=== PATIENT | female | born 1970 | race Caucasian/White ===

== ENCOUNTER → 2017-10-23 09:36 | Outpatient (CLI) | payer OTHER, SELFPAY ==
[2017-10-23 11:25] LABS: AST(SGOT) 17 U/L (15-37); Alanine Aminotransfer ALT/SGPT 20 U/L (13-56); Albumin, Serum 3.6 g/dL (3.2-5.0); Alkaline Phosphatase 76 U/L (45-117); Bilirubin, Direct 0.15 mg/dL (0.00-0.30); Cholesterol 181 mg/dL (200); Globulin 4.4 g/dL (2.2-4.2); High Density Lipoprotein 45 mg/dL; Triglycerides 130 mg/dL; Very Low Density Lipoprotein 26 mg/dL (5-40)
== END ==
LOC: LAB 09:39
PROVIDERS: Family Provider Family Medicine; PCP Family Medicine; Visit Provider Family Medicine
DX: E78.00 Pure hypercholesterolemia, unspecified (principal); E03.9 Hypothyroidism, unspecified
CPT/HCPCS: 36415; 80061; 80076; 84443

== ENCOUNTER → 2018-05-12 12:42 | Outpatient (CLI) | payer BC, SELFPAY ==
--- NOTE | 2018-05-12 12:52 | RAD_ITS ---
STUDY: X-RAY CHEST REASON FOR EXAM: Female, 47 years old. Cough x2 weeks TECHNIQUE: PA and lateral views of the chest. COMPARISON: 06/26/2014 FINDINGS: The lungs are clear and expanded. There is no demonstrated pleural abnormality. Normal size heart. There are calcified mediastinal lymph nodes. Normal visualized pulmonary arteries. Normal visualized aortic arch and descending thoracic aorta. Normal visualized thoracic spine. Normal visualized ribs, clavicles, and shoulders. There is no demonstrated abnormality of the visualized soft tissue structures of the upper abdomen. RAD/Chest PA and Lateral IMPRESSION: There is no acute cardiopulmonary disease or active cavitating tuberculosis. There is no significant interval change. Electronically Signed: Xenia Caldwell MD at 7:21 EST , Service support ,
== END ==
LOC: RAD 12:47
PROVIDERS: Family Provider Family Medicine; PCP Family Medicine; Referring Provider Family Medicine; Visit Provider Family Medicine
DX: R05 Cough (principal)
CPT/HCPCS: 71046

== ENCOUNTER → 2018-06-25 10:22 | Outpatient (CLI) | payer BC, SELFPAY ==
[2018-06-25 11:15] LABS: Absolute Neutrophil Count 6.5 X10^3/uL (2.0-7.7); Basophil# 0.03 X10^3/uL; Basophil% 0.3 % (0-1); Eosinophil# 0.13 X10^3/uL; Eosinophils% 1.3 % (0-5); Hematocrit 38.4 % (37-47); Hemoglobin 11.9 g/dl (12.0-15.0); Lymphocyte % 26.8 % (19-41); Mean Corpuscular Hgb 28.5 pg (27.0-32.0); Mean Corpuscular Volume 91.9 fL (81-99); Mean Platelet Vol. 11.6 fl (6.2-12.0); Monocyte# 0.71 X10^3/uL; Monocyte% 7.1 % (0-10); Neutrophil # 6.47 X10^3/uL (2.7-7.7); Neutrophil % 64.2 % (47-70); POSITIVE COUNT NO; POSITIVE DIFFERENTIAL NO; POSITIVE MORPHOLOGY NO; Platelet Count 249 K/mm3 (150-450); RBC Distribution Width CV 15.1 % (11.6-14.6); RBC Distribution Width SD 50.8 fl (35.1-43.9); Red Blood Count 4.18 M/mm3 (4.2-5.4); White Blood Count 10.1 K/mm3 (4.4-11.0)
[2018-06-25 11:16] LABS: Color, Urine Yellow (Yellow); Glucose, Dipstick Normal (Normal); Ketone-Dipstick Negative (Negative); Leukocyte Esterase-Dipstick 25 /ul (Negative); Nitrite-Dipstick Negative (Negative); Occult Blood-Urine Negative /ul (Negative); Protein-Dipstick Negative (Negative); Urine Bilirubin Dipstick Negative (Negative); Urine Clarity Sl. Cloudy (Clear); Urine Urobilinogen Normal (Normal)
[2018-06-25 11:58] LABS: AST(SGOT) 13 U/L (15-37); Alanine Aminotransfer ALT/SGPT 18 U/L (13-56); Albumin, Serum 3.8 g/dL (3.2-5.0); Alkaline Phosphatase 71 U/L (45-117); Anion Gap 9 (5-15); BUN 18 mg/dL (7-18); BUN/Creat Ratio 19.9 RATIO (10-20); Calcium,Total 8.4 mg/dL (8.5-10.1); Chloride 105 mmol/L (98-107); Cholesterol 180 mg/dL (200); Creatinine, Serum 0.91 mg/dL (0.55-1.02); EST Glomerular Filtration Rate 70 mL/min (>60); Est Glom Filt Rate - Afr Amer 85 mL/min (>60); Glucose 79 mg/dL (74-106); High Density Lipoprotein 48 mg/dL; Potassium 3.7 mmol/L (3.5-5.1); Protein, Total 7.8 g/dL (6.4-8.2); Sodium Level 137 mmol/L (136-145); Triglycerides 162 mg/dL; Very Low Density Lipoprotein 32 mg/dL (5-40)
--- OUTSIDE RECORDS SUMMARY | 2018-08-29 19:02 | XMS RPT_ITS ---
:1970 Author Organization [place] Care Team Providers Name Role Phone Kash Gentile Attending Unavailable Kash Gentile Referring Unavailable Kash Gentile Primary Care Unavailable Kash Gentile Attending Unavailable Kash Gentile Referring Unavailable Kash Gentile Primary Care Unavailable Kash Gentile Attending Unavailable Kash Gentile Referring Unavailable Kash Gentile Primary Care Unavailable PROBLEMS PROBLEMS DATE TYPE CONDITION / CODE ATTENDING STATUS SOURCE 06/25/2018 Unknown Z12.31 - Encounter Kash Gentile Active [facility] for screening [facility] mammogram for Hospital malignant neoplasm Repository of breast / Z12.31(ICD-10) 06/25/2018 Unknown Z00.00 - Encounter Kash Gentile Active [facility] for general adult [facility] examination Repository without abnormal findings / Z00.00(ICD-10) 06/25/2018 Unknown E78.00 - Pure Kash Gentile Active [place] hypercholesterolem Community ia, unspecified / Hospital E78.00(ICD-10) Repository 06/25/2018 Unknown I10 - Essential Kash Gentile Active [facility]primary[facility] hypertension [facility] Hospital I10(ICD-10) Repository 05/12/2018 Unknown R05 - Cough / Kash Gentile Active [facility] R05(ICD-10) [facility] Repository 10/23/2017 Unknown E03.9 - Kash Gentile Active [facility] Hypothyroidism, Community unspecified / Hospital E03.9(ICD-10) Repository PROCEDURES PROCEDURES No Procedure Records FoundRESULTS RESULTS CBC W/DIFF, AUTOMATED Collected: 06/25/2018 Status: F Source: FRANNIE 10:31 AM [facility] REPOSITORY TYPE CODE TESTS RESULT OUT OF RANGE REFERENCE UNITS LAB L100.1000 4.4-11.0 K/mm3 Normal WBC 10.1 LAB L100.1200 4.2-5.4 M/mm3 Low RBC 4.18 LAB L100.1300 12.0-15.0 g/dl Low HGB 11.9 LAB L100.1400 37-47 % Normal HCT 38.4 LAB L100.1500 81-99 fL Normal MCV 91.9 LAB L100.1600 27.0-32.0 pg Normal MCH 28.5 LAB L100.1700 32-36 g/gl Low MCHC 31.0 LAB L100.1810 11.6-14.6 % High RDW CV 15.1 LAB L100.1820 35.1-43.9 fl High RDW SD 50.8 LAB L100.1900 150-450 K/mm3 Normal PLT 249 LAB L100.2000 6.2-12.0 fl Normal MPV 11.6 LAB L100.2100 47-70 % Normal NEUT% 64.2 LAB L100.2200 19-41 % Normal LY% 26.8 LAB L100.2300 0-10 % Normal MONO% 7.1 LAB L100.2400 0-5 % Normal EO% 1.3 LAB L100.2500 0-1 % Normal BASO% 0.3 LAB L100.2550 0.0-0.9 % Normal IM GRAN % 0.300 Result Comment: IG% - Immature Granulocytes (promyelocytes, myelocytes and metamyelocytes) > 1% indicates that a LEFT SHIFT is Present. LAB L100.2620 2.0-7.7 X10 3/uL Normal Absolute Neut 6.5 LAB L100.2720 0.83-4.51 X10 3/ul Normal Absolute Lymph 2.70 Performed By: #### L100.0100 #### [facility] [address] [place], [address] URINALYSIS, ROUTINE Collected: 06/25/2018 Status: F Source: FRANNIE (DIPSTICK) 10:31 AM [facility] REPOSITORY Order Comment: How was Urine Obtained? Urine, Random TYPE CODE TESTS RESULT OUT OF RANGE REFERENCE UNITS LAB L400.3000 Yellow COLOR Normal Yellow LAB L400.3050 Clear Normal CLARITY Sl. Cloudy LAB L400.3200 Normal mg/dl Normal GLUCOSE, UR Normal LAB L400.3300 Negative mg/dL Normal BILIRUBIN URINE Negative LAB L400.3400 Negative mg/dl Normal KETONE UR Negative LAB L400.3465 1.002-1.030 Normal SP.GR. DIPSTX 1.020 LAB L400.3550 5.0 - 8.0 pH UR Normal 5.0 LAB L400.3600 Negative mg/dl PROT Normal DIPSTX Negative LAB L400.3700 Normal mg/dl Normal UROBILI Normal LAB L400.3750 Negative Normal NITRITE UR Negative LAB L400.3780 Negative /ul Normal OCCULT BLOOD-UR Negative LAB L400.3800 Negative /ul High LEUK 25 ESTERASE Performed By: #### L400.2011 #### [facility] [address] [place], [address] COMPREHENSIVE METABOLIC Collected: 06/25/2018 Status: F Source: FRANNIE PROFIL 10:31 AM [facility] REPOSITORY TYPE CODE TESTS RESULT OUT OF RANGE REFERENCE UNITS LAB L501.0100 74-106 mg/dL Normal GLU 79 Result Comment: Please note revised GLUCOSE reference range effective 2017. LAB L501.1000 7-18 mg/dL Normal BUN 18 LAB L501.1100 0.55-1.02 mg/dL Normal CREAT,SERUM 0.91 Result Comment: The validity of the calculated GFR AND GFRAA in patients over 70 years has not been determined. Clinical correlation is essential. LAB L501.1110 >60 mL/min Normal EST GFR 70 Result Comment: Non- GFR Calc LAB L501.1115 >60 mL/min Normal EST GFR - AA 85 Result Comment: GFR Calc LAB L501.1300 10-20 RATIO Normal BUN/CRE 19.9 LAB L501.1500 6.4-8.2 g/dL T Normal PROT 7.8 LAB L501.1800 3.2-5.0 g/dL Normal ALB 3.8 LAB L501.1950 2.2-4.2 g/dL Normal GLOB 4.0 LAB L501.2000 0.9-2.4 RATIO Normal A/G 1.0 LAB L501.2200 8.5-10.1 mg/dL Low CA 8.4 LAB L501.4100 15-37 U/L Low AST 13 LAB L501.4305 45-117 U/L Normal ALK P 71 LAB L501.4405 13-56 U/L Normal ALT 18 LAB L501.4600 0.20-1.00 mg/dL T Normal BILI 0.90 LAB L501.5300 136-145 mmol/L NA Normal 137 LAB L501.5600 3.5-5.1 mmol/L K Normal 3.7 LAB L501.5900 98-107 mmol/L CL Normal 105 LAB L501.6100 21.0-32.0 mmol/L Normal CO2 23.0 LAB L501.6200 5-15 Normal GAP 9 Performed By: #### L500.4050, L500.4100, L501.9520 #### [facility] [address] [place], [address] LIPID PROFILE Collected: 06/25/2018 Status: F Source: VIOLA 10:31 AM [facility] REPOSITORY TYPE CODE TESTS RESULT OUT OF RANGE REFERENCE UNITS LAB L501.4900 200 mg/dL Normal CHOL 180 Result Comment: <200 mg/dL Desirable 200-240 mg/dL Borderline >240 mg/dL High Risk LAB L501.5000 mg/dL Normal TRIG 162 Result Comment: The drugs N-Acetylcysteine and Metamizole may falsely depress this assay. Serum Triglycerides Reference Interval Normal <150 mg/dL Borderline high 150 - 199 mg/dL High 200 - 499 mg/dL Very High > or = 500 mg/dL LAB L501.6400 mg/dL Normal HDL 48 Result Comment: The drugs N-Acetylcysteine and Metamizole may falsely depress this assay. Reference Range HDL <40 mg/dL Low HDL Cholesterol HDL >or= 60 mg/dL High HDL Cholesterol LAB L501.6500 0-130 mg/dL Normal LDL 100 LAB L501.6600 5-40 mg/dL Normal VLDL 32 Performed By: #### L500.4050, L500.4100, L501.9520 #### [facility] [address] [place], [address] THYROID STIM HORMONE Collected: 06/25/2018 Status: F Source: VIOLA (TSH) 10:31 AM [facility] REPOSITORY TYPE CODE TESTS RESULT OUT OF RANGE REFERENCE UNITS LAB L501.9520 0.358-3.74 uIU/mL High TSH 63.50 Performed By: #### L500.4050, L500.4100, L501.9520 #### [facility] [address] [place], [address] CHEST PA AND LATERAL Observed: 05/12/2018 Status: F Source: VIOLA 12:52 PM [facility] REPOSITORY [facility] Imaging Services [address] [place] [address] Chest PA and Lateral MR#: [id number] Acct: [id number] Name: ASHLEY CALDERÓN Rep #: [id number] : 1970 F 47 From: Xenia Caldwell MD PCP: Kash Gentile MD Status: REG CLI Study: Chest PA and Lateral Date of Exam: 05/12/18 Exam# [id number] Ordering Dr: Kash Gentile MD STUDY: X-RAY CHEST REASON FOR EXAM: Female, 47 years old. Cough x2 weeks TECHNIQUE: PA and lateral views of the chest. COMPARISON: 06/26/2014 FINDINGS: The lungs are clear and expanded. There is no demonstrated pleural abnormality. Normal size heart. There are calcified mediastinal lymph nodes. Normal visualized pulmonary arteries. Normal visualized aortic arch and descending thoracic aorta. Normal visualized thoracic spine. Normal visualized ribs, clavicles, and shoulders. There is no demonstrated abnormality of the visualized soft tissue structures of the upper abdomen. RAD/Chest PA and Lateral IMPRESSION: There is no acute cardiopulmonary disease or active cavitating tuberculosis. There is no significant interval change. Electronically Signed: Xenia Caldwell MD at 7:21 EST , Service support , CC: Kash Gentile MD Logger Driving Horses: Signed LIVER PROFILE Collected: 10/23/2017 Status: F Source: VIOLA 9:46 AM [facility] REPOSITORY TYPE CODE TESTS RESULT OUT OF RANGE REFERENCE UNITS LAB L501.1500 6.4-8.2 g/dL Normal T PROT 8.0 LAB L501.1800 3.2-5.0 g/dL Normal ALB 3.6 LAB L501.1950 2.2-4.2 g/dL High GLOB 4.4 LAB L501.4100 15-37 U/L Normal AST 17 LAB L501.4305 45-117 U/L Normal ALK P 76 LAB L501.4405 13-56 U/L Normal ALT 20 LAB L501.4600 0.20-1.00 mg/dL Normal T BILI 0.90 LAB L501.4700 0.00-0.30 mg/dL Normal D BILI 0.15 Performed By: #### L500.3400, L500.4100, L501.9520 #### [facility] [place], [address] LIPID PROFILE Collected: 10/23/2017 Status: F Source: VIOLA 9:46 AM [facility] REPOSITORY TYPE CODE TESTS RESULT OUT OF RANGE REFERENCE UNITS LAB L501.4900 200 mg/dL Normal CHOL 181 Result Comment: <200 mg/dL Desirable 200-240 mg/dL Borderline >240 mg/dL High Risk LAB L501.5000 mg/dL Normal TRIG 130 Result Comment: The drugs N-Acetylcysteine and Metamizole may falsely depress this assay. Serum Triglycerides Reference Interval Normal <150 mg/dL Borderline high 150 - 199 mg/dL High 200 - 499 mg/dL Very High > or = 500 mg/dL LAB L501.6400 mg/dL Normal HDL 45 Result Comment: The drugs N-Acetylcysteine and Metamizole may falsely depress this assay. Reference Range HDL <40 mg/dL Low HDL Cholesterol HDL >or= 60 mg/dL High HDL Cholesterol LAB L501.6500 0-130 mg/dL Normal LDL 110 LAB L501.6600 5-40 mg/dL Normal VLDL 26 Performed By: #### L500.3400, L500.4100, L501.9520 #### [facility] [address] [place], [place], [address] THYROID STIM HORMONE Collected: 10/23/2017 Status: F Source: VIOLA (TSH) 9:46 AM [facility] REPOSITORY TYPE CODE TESTS RESULT OUT OF RANGE REFERENCE UNITS LAB L501.9520 0.358-3.74 uIU/mL High TSH 11.70 Performed By: #### L500.3400, L500.4100, L501.9520 #### [facility] [address] [place], [address] PROGRESS Observed: 09/03/2017 Status: COMPLETED Source: STAPLES 1:[address] [facility] [place] REPOSITORY HNO ID: [id number] Author: Helen Fuentes Bus Girl Service: (none) Author Type: (none) Type: Progress Notes Filed: 09/09/2017 10:08 AM Note Text: PCP clarification letter mailed to patient to re establish care. PROGRESS Observed: 09/03/2017 Status: COMPLETED Source: [place]AP[place] 1:[address] [facility] [place] REPOSITORY HNO ID: [id number] Author: Helen Fuentes Bus Girl Service: (none) Author Type: (none) Type: Progress Notes Filed: 09/09/2017 10:08 AM Note Text: Tried reaching patient and not a working number. Patient hasn't been seen by PCP since 2011. Letter sent for PCP verification. PROGRESS Observed: 09/03/2017 Status: COMPLETED Source: [place] 1:[address] [facility] [place] REPOSITORY HNO ID: [id number] Author: Helen Fuentes Bus Girl Service: (none) Author Type: (none) Type: Progress Notes Filed: 09/09/2017 10:08 AM Note Text: [facility] CARE GAP REGISTRY DOCUMENTATION (OUTSIDE TEAMLET) Provider Action/FYI: Please file labs and advise if wanting anything additional. Patient hasn't been seen by pcp in years. 2011 PSR Action/FYI: Patient identified by name and date of . Last BP/Labs: Blood Pressure: Last 3 Encounter BP Readings: Date: BP: 06/20/2015 144/100[BP JOO[ 04/13/2015 132/98 11/06/2014 138/86 Lipids: Cholesterol, Total (mg/dL) Date Value 10/18/2014 272 04/28/2013 204 HDL Cholesterol (mg/dL) Date Value 10/18/2014 58 04/28/2013 55 LDL Cholesterol (mg/dL) Date Value 10/18/2014 180 04/28/2013 127 Triglyceride (mg/dL) Date Value 10/18/2014 169 04/28/2013 110 HGB A1C: Lab Results Component Value Date HBA1C 5.8 10/18/2014 TSH: TSH (uU/mL) Date Value 04/13/2015 210.100 10/18/2014 368.100 ) ? Patient has the following care gap registry disease diagnosis:tsh ? Patient has the following open care gaps:Thyroid ? Patient hasn't been seen by PCP in several years - BP elevated at last visit. ? Last office visit: 06/20/2015 ? Future office visit:Physical next available with labs prior with labs prior Health Maintenance Due: MAMMOGRAM due on 10/24/2015 - order pending INFLUENZA(1) due on 02/06/2017 Helen Fuentes Cma CNPTOUTREACH Observed: 09/03/2017 Status: COMPLETED Source: ADRIANNA 12:00 AM [facility] REPOSITORY Patient Outreach (INTMWS) NIRMALAASHLEY ([id number]) 1970 F Date Time Provider Department 09/03/17 HELEN FUENTES) MARISOL During your visit today, we recorded the following information about you: Helen Fuentes Cma 09/09/2017 10:08 AM Signed [facility] CARE GAP REGISTRY DOCUMENTATION (OUTSIDE TEAMLET) Provider Action/FYI: Please file labs and advise if wanting anything additional. Patient hasn't been seen by pcp in years. 2011 PSR Action/FYI: Patient identified by name and date of . Last BP/Labs: Blood Pressure: Last 3 Encounter BP Readings: Date: BP: 06/20/2015 144/100[BP JOO[ 04/13/2015 132/98 11/06/2014 138/86 Lipids: Cholesterol, Total (mg/dL) Date Value 10/18/2014 272 04/28/2013 204 HDL Cholesterol (mg/dL) Date Value 10/18/2014 58 04/28/2013 55 LDL Cholesterol (mg/dL) Date Value 10/18/2014 180 04/28/2013 127 Triglyceride (mg/dL) Date Value 10/18/2014 169 04/28/2013 110 HGB A1C: Lab Results Component Value Date HBA1C 5.8 10/18/2014 TSH: TSH (uU/mL) Date Value 04/13/2015 210.100 10/18/2014 368.100 ) ? Patient has the following care gap registry disease diagnosis:tsh ? Patient has the following open care gaps:Thyroid ? Patient hasn't been seen by PCP in several years - BP elevated at last visit. ? Last office visit: 06/20/2015 ? Future office visit:Physical next available with labs prior with labs prior Health Maintenance Due: MAMMOGRAM due on 10/24/2015 - order pending INFLUENZA(1) due on 02/06/2017 Helen Fuentes Cma 09/09/2017 10:08 AM Signed Tried reaching patient and not a working number. Patient hasn't been seen by PCP since 2011. Letter sent for PCP verification. Helen Fuentes Cma 09/09/2017 10:08 AM Signed PCP clarification letter mailed to patient to re establish care. Allergies As of Date: 09/03/2017 Noted Allergy Reaction LATEX 02/16/2008 7 - Swelling Date Reviewed: 06/20/2015 Reviewed by: Montse Deluna [facility] - Fully Assessed Reason for Visit: PHMA/Care Gap Outreach [3605] Primary Visit Diagnosis:Hyperlipidemia, unspecified hyperlipidemia type [E78.5] Other Visit Diagnoses:Acquired hypothyroidism [E03.9] Screening mammogram, encounter for [Z12.31] Prescriptions as of 09/03/2017 Sig: SYNTHROID 125 MCG TABLET Take 1 tablet by mouth once d* HYDROCHLOROTHIAZIDE 12.5 MG C* Take 1 capsule by mouth once * MAGNESIUM OXIDE 400 MG CAPSULE Take by mouth once daily. ZINC 50 MG TABLET Take by mouth once daily. CHOLECALCIFEROL (VITAMIN D3) * Take 5,000 Units by mouth onc* BIOTIN 10,000 MCG CAPSULE Take by mouth once daily. FERROUS SULFATE ER 325 MG (65* Take by mouth once daily. VITAMIN B COMPLEX TABLET Take 1 tablet by mouth once d* * MULTIVITAMIN TABLET Take one(1) tablet daily. Problem List As Of Date 09/03/2017 Noted Resolved Hypothyroidism [E03.9] INVALID FOR* More... FAMILY HISTORY OF DIABETES MELLITUS [Z83.3] INVALID FOR* More... Other malaise and fatigue [R53.81, R53.83] INVALID FOR*04/28/2013 Mixed hyperlipidemia [E78.2] More... BMI 37.0-37.9, adult [Z68.37] INVALID FOR*10/17/2014 More... Letter Text Makenna Mart MD Department of Internal Medicine [address] [place], [place] [id number] Ashley Calderón [phone] [address] [place] [id number] 09/03/2017 Dear : Our records indicate that Makenna Mart MD is listed as your Primary Care Physician. It has been a period of time since you were seen in our office and we hope this finds you well. If we continue to be your primary care doctor, please consider making an appointment to re-establish care, update your health records, and discuss your health issues. If we no longer provide care for you, please let us know so that we can update our records. The main telephone number is [phone]. Best Regards, The office staff of Makenna Mart MD Encounter Status:Closed by HELEN FUENTES CMA on 09/09/17 ALLERGIES ALLERGIES DATE TYPE / CODE NAME / CODE REACTION SEVERITY SOURCE 06/26/2014 Drug latex/[id number] Hives Unknown [facility] Allergy/4160 8921(RXNORM) Hospital [address]694(SNOMED Repository CT) ENCOUNTERS ENCOUNTERS ADMIT/DISCHARGE ACCOUNT ADMITTING ENCOUNTER LOCATION SOURCE NUMBER CLASS 06/25/2018 [id number] Ambulatory [place] [facility] ing:LAB Repository 05/12/2018 [id number] Ambulatory [place] [facility] 8 [facility] ing:RAD Repository 10/23/2017 [id number] Ambulatory [facility] ing:LAB Repository PAYERS PAYERS ENCOUNTER GUARANTOR PAYER SUBSCRIBER SOURCE 06/25/2018 ASHLEY G [id number] Primary ASHLEY G [facility] [address] Insurance:ANTHEMPolic SPAIDDOB: [address] y Number: [id number] [address]Tib: 330 [id number] Repository [phone] () Date:7312-28-28[address] [place] [id number]: 06/25/2018 Secondary NOT GIVENUNK [place] Insurance:SELF PAY [facility] Number: Effective Repository Date:2018-06-25 05/12/2018 ASHLEY G [id number] Primary ASHLEY G [place] [address] Insurance:ANTHEMPolic SPAIDDOB: [address] y Number: [id number] [address]Kgl: 330 [id number] Repository [phone] () Date:0415-56-40[address], [place] [address]WP: 05/12/2018 Secondary NOT GIVENUNK [place] Insurance:SELF PAY [facility] Number: Effective Repository Date:2018-05-12 10/23/2017 Ashley Singletary Tilfs489 Primary Ashley Kathleen Mcadoo Insurance:[facility] [address]DOB[address] [address]O[address]wl[address] [id number] [address]Yup: (330) Number: Repository [phone] HP [id number] Date:4753-44-26[address], [place] [address]MA: 10/23/2017 [email or web address]LF [facility]: Effective Repository Date:2017-10-23
== END ==
PROVIDERS: Family Provider Family Medicine; PCP Family Medicine; Referring Provider Family Medicine; Visit Provider Family Medicine
DX: Z00.00 Encounter for general adult medical examination without abnormal findings (principal); E78.00 Pure hypercholesterolemia, unspecified; I10 Essential (primary) hypertension; E03.9 Hypothyroidism, unspecified
CPT/HCPCS: 36415; 80053; 80061; 81002; 84443; 85025

== ENCOUNTER → 2018-08-03 07:10 | Outpatient (CLI) | payer BC, SELFPAY ==
--- NOTE | 2018-08-03 07:14 | BI_ITS ---
MAMMOGRAPHY - BILATERAL SCREENING REASON FOR EXAM: Female, 48 years old. Routine annual screening examination. PERTINENT HISTORY: Aunt with breast cancer. TECHNIQUE: Digital bilateral breast snehal (3D mammographic acquisition) in the CC and MLO projections. 2-D mediolateral oblique (MLO) and craniocaudad (CC) views of both breasts were obtained. CAD: Full Field Digital Mammography with Computer Added Detection was performed. COMPARISON: Comparison is made with prior examination dated October 23, 2014. FINDINGS: Breast Composition: The breasts are heterogeneously dense, which may obscure small masses. There are no dominant masses or suspicious calcifications. Stable benign-appearing bilateral axillary lymph nodes. No other significant abnormalities are identified. There has been no significant change since the prior study. BI/SCREENING MAMM (CAD), BILAT IMPRESSION: Stable bilateral screening mammogram. Yearly follow-up mammogram recommended. (A) ASSESSMENT CATEGORY: BIRADS Category 2: Benign. A letter regarding these results will be sent to the patient by the facility within 30 days. Approximately 10% of breast cancers are not detected by mammography. A normal mammogram should not delay biopsy of a clinically suspicious abnormality. [id number] Electronically Signed: Jayme Valadez, at 9:11 EST , Service support ,
== END ==
PROVIDERS: Family Provider Family Medicine; PCP Family Medicine; Referring Provider Family Medicine; Visit Provider Family Medicine
DX: Z12.31 Encounter for screening mammogram for malignant neoplasm of breast (principal)
CPT/HCPCS: 77063; 77067

== ENCOUNTER → 2018-08-12 15:24 | Outpatient (CLI) | payer BC, SELFPAY ==
[2018-08-17 09:59] LABS: HPV APTIMA, High Risk Negative (Negative)
== END ==
PROVIDERS: Visit Provider Obstetrics & Gynecology
DX: Z12.4 Encounter for screening for malignant neoplasm of cervix (principal)
CPT/HCPCS: 87624; 88175; G0145

== ENCOUNTER → 2018-10-05 | Outpatient (CLI) | payer BC, SELFPAY | END | disposition home or self-care (01) | LOC: LAB 12:43 | PROVIDERS: Family Provider Family Medicine; PCP Family Medicine; Referring Provider Family Medicine; Visit Provider Family Medicine | DX: E03.9 Hypothyroidism, unspecified (principal) | CPT/HCPCS: 36415; 84443 ==

== ENCOUNTER → 2018-12-16 | Outpatient (CLI) | payer BC, SELFPAY ==
[2018-12-16 13:23] LABS: Thyroid Stim Hormone (TSH) 0.59 uIU/mL (0.358-3.74)
== END | disposition home or self-care (01) ==
LOC: LAB 11:55
PROVIDERS: Family Provider Family Medicine; PCP Family Medicine; Referring Provider Family Medicine; Visit Provider Family Medicine
DX: E03.9 Hypothyroidism, unspecified (principal)
CPT/HCPCS: 36415; 84443

== ENCOUNTER → 2019-01-07 | Outpatient (CLI) | payer BC, SELFPAY ==
[2019-01-07 11:25] LABS: AST(SGOT) 24 U/L (15-37); Alanine Aminotransfer ALT/SGPT 29 U/L (13-56); Albumin, Serum 3.7 g/dL (3.2-5.0); Alkaline Phosphatase 89 U/L (45-117); Bilirubin, Direct 0.25 mg/dL (0.00-0.30); Cholesterol 128 mg/dL (200); Globulin 4.2 g/dL (2.2-4.2); High Density Lipoprotein 48 mg/dL; Protein, Total 7.9 g/dL (6.4-8.2); Triglycerides 109 mg/dL; Very Low Density Lipoprotein 22 mg/dL (5-40)
== END | disposition home or self-care (01) ==
LOC: LAB 09:55
PROVIDERS: Family Provider Family Medicine; PCP Family Medicine; Referring Provider Family Medicine; Visit Provider Family Medicine
DX: E78.00 Pure hypercholesterolemia, unspecified (principal); Z51.81 Encounter for therapeutic drug level monitoring
CPT/HCPCS: 36415; 80061; 80076

== ENCOUNTER 2019-05-06 18:37 | Emergency (ER) | payer BC, SELFPAY ==
[2019-05-06 18:38] VITALS: BP 142/95; PULSE 89; RESP 16; TEMP 36.6; O2SAT 97; BMI 42.0
[2019-05-06 18:43] VITALS: BP 142/95; PULSE 89; RESP 16; TEMP 36.6; O2SAT 97
--- NOTE | 2019-05-06 18:51 | RAD_ITS ---
STUDY: X-RAY CHEST REASON FOR EXAM: Female, 48 years old. Shortness of breath. TECHNIQUE: Cough. COMPARISON: 05/12/2018. FINDINGS: The lungs are clear. There are no pleural effusions. There is no pneumothorax. The heart is normal in size. The visualized osseous structures are within normal limits. RAD/Chest PA and Lateral IMPRESSION: No acute thoracic pathology. Electronically Signed: Nando Escobar, at 19:31 EST Tel , Service support ,
--- NOTE | 2019-05-06 18:52 | ED.DCSUM_ITS ---
- ER Visit Summary Date of Service: 05/06/19 Chief Complaint: Dyspnea History of Present Illness: The patient is a 48 F who states that to 3 weeks ago she was treated with an inhaler and another medication she cannot remember for bronchitis. She is doing well until yesterday when she started noticing short ness of breath. The suddenly got worse just prior to arrival and she came to the emergency department. She denies any known lung condition notes a history of hypertension high cholesterol and hypothyroidism. She does not know her medications. She denies being a smoker. No fevers. Slight rhinorrhea cough is nonproductive Physical Examination: Afebrile vital signs are stable respirations 16 pulse ox 97% on room air Gen: Well-nourished well-developed Head: Normocephalic atraumatic Eyes: Perrl EOMI ENT: TMs clear no rhinorrhea moist mucous membranes Neck: Supple no lymphadenopathy no JVD nontender CVS: Regular rate rhythm no murmurs normal S1-S2 Respiratory: No distress there is audible forced expiratory wheeze from the neck. With pursed lip breathing there is a faint expiratory wheeze bilaterally chest nontender Abdomen: Soft nontender nondistended normal bowel sounds no masses Back: Nontender Extremity: Nontender no edema Skin: Normal color no rash Neuro: alert orientated ?3 CN II-XII intact normal strength sensation reflexes gait cerebellar Psych: Normal affect normal mood Test Results: Chest x-ray shows no acute process Emergency Department Course and Treatment: Patient received breathing treatments and prednisone. Pulse ox is 100%. She is speaking in full sentences. She will be started on albuterol MDI and prednisone at home. She is to follow-up with her doctor return if worsening or concerns Impression: 1. Acute bronchitis with bronchospasm This note was generated with [employer] dictation software. It may contain incorrect words, spelling, and punctuation that were not noted in review of the chart prior to signing ED Disposition - Plan for ED Patient: Disposition: Home or Assisted Living Instructions: BRONCHITIS with Wheezing (Adult) Prescriptions: predniSONE tablet 60 mg PO DAILY #15 tab Prescription Printed Albuterol Inhaler [Ventolin Hfa] 2 puff INHALATION Q2H PRN PRN #1 inhaler PRN Reason: Wheezing Prescription Printed Referrals: Kash Gentile MD [Primary Care Provider] - 3-5 Days if not improving
[2019-05-06 19:04] VITALS: BP 135/80; PULSE 102; RESP 20; TEMP 37.2; O2SAT 97
[2019-05-06] MEDS: Ipratropium/Albuterol Sulfate 3 ML AMPUL.NEB INHALATION ×2 (19:05)
[2019-05-06 19:06] VITALS: PULSE 95; RESP 18
[2019-05-06] MEDS: Albuterol 2.5 MG/3 ML VIAL.NEB. INHALATION (19:54)
[2019-05-06 19:55] VITALS: PULSE 79; RESP 16
[2019-05-06] MEDS: predniSONE 20 MG Tablet 60 MG PO (20:13)
[2019-05-06 20:15] VITALS: BP 132/79; PULSE 98; RESP 20; O2SAT 98
--- NOTE | 2019-05-06 20:15 | ED.RN ---
THIS NURSE REVIEWED D/C INSTRUCTIONS WITH PT. PT VERBALIZED UNDERSTANDING OF INSTRUCTIONS. PT DENIES FURTHER NEEDS OR QUESTIONS AT THIS TIME.
== END 2019-05-06 20:16 | disposition home or self-care (01) ==
PROVIDERS: Emergency Provider Emergency Medicine; Family Provider Family Medicine; PCP Family Medicine
DX: J20.9 Acute bronchitis, unspecified (principal); I10 Essential (primary) hypertension; E78.00 Pure hypercholesterolemia, unspecified; E03.9 Hypothyroidism, unspecified; Z79.899 Other long term (current) drug therapy
CPT/HCPCS: 71046; 94640; 99283

== ENCOUNTER → 2020-03-01 08:56 | Outpatient (CLI) | payer OTHER, SELFPAY ==
[2019-07-25 13:12] VITALS: BMI 42.0
[2020-03-01 10:19] LABS: AST(SGOT) 21 U/L (15-37); Alanine Aminotransfer ALT/SGPT 29 U/L (13-56); Albumin, Serum 3.8 g/dL (3.2-5.0); Alkaline Phosphatase 77 U/L (45-117); Bilirubin, Direct 0.23 mg/dL (0.00-0.30); Cholesterol 143 mg/dL (200); Globulin 4.1 g/dL (2.2-4.2); High Density Lipoprotein 47 mg/dL; Protein, Total 7.9 g/dL (6.4-8.2); Triglycerides 202 mg/dL; Very Low Density Lipoprotein 40 mg/dL (5-40)
== END ==
LOC: LAB 09:02
PROVIDERS: PCP Family Medicine; Referring Provider Family Medicine; Visit Provider Family Medicine
DX: I10 Essential (primary) hypertension (principal); E03.9 Hypothyroidism, unspecified; E78.00 Pure hypercholesterolemia, unspecified
CPT/HCPCS: 36415; 80061; 80076; 84443

== ENCOUNTER → 2020-07-20 08:12 | Outpatient (CLI) | payer OTHER, SELFPAY ==
[2019-07-25 13:12] VITALS: BMI 42.0
[2020-07-20 09:35] LABS: Absolute Lymphocyte Count 2.66 X10^3/uL (0.83-4.51); Absolute Neutrophil Count 5.7 X10^3/uL (2.0-7.7); Basophil# 0.06 X10^3/uL; Basophil% 0.6 % (0-1); Eosinophil# 0.14 X10^3/uL; Eosinophils% 1.5 % (0-5); Hemoglobin 12.6 g/dL (12.0-15.0); Lymphocyte # 2.66 X10^3/ul (4.0); Lymphocyte % 28.1 % (19-41); Mean Corpuscular Hgb 27.1 pg (27.0-32.0); Mean Corpuscular Volume 90.3 fL (81-99); Mean Platelet Vol. 11.9 fl (6.2-12.0); Monocyte# 0.83 X10^3/uL; Monocyte% 8.8 % (0-10); NRBC Flagged by Analyzer 0 % (0-5); Neutrophil # 5.74 X10^3/uL (2.7-7.7); Neutrophil % 60.5 % (47-70); Platelet Count 281 K/mm3 (150-450); RBC Distribution Width CV 16.5 % (11.6-14.6); RBC Distribution Width SD 54.8 fl (35.1-43.9); Red Blood Count 4.65 M/mm3 (4.2-5.4); White Blood Count 9.5 K/mm3 (4.4-11.0)
[2020-07-20 10:04] LABS: AST(SGOT) 13 U/L (15-37); Alanine Aminotransfer ALT/SGPT 25 U/L (13-56); Albumin, Serum 4.3 g/dL (3.2-5.0); Alkaline Phosphatase 78 U/L (45-117); Anion Gap 5 (5-15); BUN 24 mg/dL (7-18); BUN/Creat Ratio 23.1 RATIO (10-20); Calcium,Total 9.3 mg/dL (8.5-10.1); Chloride 104 mmol/L (98-107); Cholesterol 179 mg/dL (200); Creatinine, Serum 1.04 mg/dL (0.55-1.02); EST Glomerular Filtration Rate 59 mL/min (>60); Est Glom Filt Rate - Afr Amer 72 mL/min (>60); Globulin 4.4 g/dL (2.2-4.2); Glucose 97 mg/dL (74-106); High Density Lipoprotein 61 mg/dL; Potassium 4.2 mmol/L (3.5-5.1); Protein, Total 8.7 g/dL (6.4-8.2); Sodium Level 136 mmol/L (136-145); Triglycerides 151 mg/dL; Very Low Density Lipoprotein 30 mg/dL (5-40)
== END ==
PROVIDERS: PCP Family Medicine; Referring Provider Family Medicine; Visit Provider Family Medicine
DX: Z00.00 Encounter for general adult medical examination without abnormal findings (principal); I10 Essential (primary) hypertension; E78.00 Pure hypercholesterolemia, unspecified; E03.9 Hypothyroidism, unspecified
CPT/HCPCS: 36415; 80053; 80061; 84443; 85025

== ENCOUNTER 2021-10-09 08:28 | Observation (INO) | payer OTHER, SELFPAY ==
[2021-10-09] VITALS (15 sets, daily range): BP systolic 94–149; BP diastolic 61–115; PULSE 54–78; RESP 14–26; TEMP 36.4–36.7; O2SAT 91–99; BMI 41.9; BMI 42.3
--- NOTE | 2021-10-09 | BLA_PTH ---
PATIENT: SATISH SILVESTRE LOC: U U#:[id number] AGE/SX: 51/F ROOM: [facility] RE10/09/[address]: Dr. Abhinav Schaefer MD : 1970 BED: 1 DIS: 10/10/2021 SPEC #: [id number] RECD: 10/09/21 16:04 STATUS: ANNALEE SCHMITZ #: [id number] DEXTER: 10/09/21 00:[address]: Abhinav Schaefer DEPT: SURGICAL PATHOLOGY RECD BY: Partha Presley ENTERED: 10/10/21 08:01 SP TYPE: BLADDER BX OTHR DR: Dr. 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 AM:greg 10/11/2021 COMMENT Case has been reviewed in consultation with Dr. Lin who concurs with the above diagnosis. IDC:[email or web address] MICROSCOPIC DESCRIPTION Slides are reviewed. GROSS DESCRIPTION Received in fixative is one container labeled with the patient's name and designated right bladder polyp. The specimen consists of a fragment of alvarado soft tissue measuring 0.2 x 0.2 x 0.1 cm. The specimen is totally submitted in one cassette. / TAD:greg 10/10/2021 TC:? CPT: 91721
--- NOTE | 2021-10-09 08:41 | CT_ITS ---
STUDY: CT ABDOMEN AND PELVIS WITHOUT CONTRAST REASON FOR EXAM: Female, 51 years old. Abd pain RADIATION DOSAGE (If Supplied By Facility): CTDIvol = ( 23.37 ) mGy, DLP = ( 1179.49 ) mGycm TECHNIQUE: Transaxial images were obtained from the dome of the diaphragm to the symphysis pubis without oral contrast, and without intravenous contrast. Sagittal and coronal images were reconstructed. Individualized dose optimization techniques were used for this CT. COMPARISON: None. FINDINGS: The visualized lung bases are unremarkable. Coronary artery calcification. There is decreased attenuation of the liver consistent with steatosis. Normal gallbladder and extrahepatic biliary system. Normal spleen. Normal pancreas. Normal bilateral adrenal glands. Mild degree of right hydronephrosis and right hydroureter due to a 6.2 mm calculus at the right ureterovesical junction. Mild degree of right perinephric stranding. Normal left kidney. Normal visualized stomach. Normal small intestine. Normal colon. The appendix is visualized and appears normal. There is scattered atherosclerotic calcification of the abdominal aorta and major visceral branches, without a demonstrated aneurysm. Normal inferior vena cava. Normal retroperitoneum. Normal urinary bladder. Normal abdominal wall. Normal osseous structures. CT/Abdomen/Pelvis without Cont IMPRESSION: 6.2 mm calculus at the right ureterovesical junction causing mild degree of right hydronephrosis and hydroureter with perinephric and periureteric stranding. Diffuse fatty infiltration of the liver. Electronically Signed: Jayme Valadez MD at 10:13 EDT ,
--- NOTE | 2021-10-09 08:42 | EDS_ITS ---
HPI HPI - GI History of Present Illness Chief Complaint: Abd Pain Narrative Narrative: Brought in by EMS worsening right lower abdominal pain since 2 AM. Dysuria since yesterday. Nausea and vomiting x2 since pain. No history of kidney stones. Denies any abdominal surgery history. History of hypertension hypercholesterolemia and hypothyroidism. Denies any allergies. No medications given by EMS. Denies any pelvic issues or ovarian cyst history. Prior similar symptoms: No PFSH PFSH Medical History (Updated 10/09/21 @ 12:03 by Kristen Rodgers) High cholesterol Hypertension Hypothyroidism Home Medications albuterol sulfate 2 puff INHALATION Q2H PRN PRN #1 inhaler 05/06/19 [Rx Last Taken Unknown] amlodipine 10 mg PO DAILY 05/06/19 [History Last Taken 10/08/21] atorvastatin 20 mg PO DAILY 05/06/19 [History Last Taken 10/08/21] hydrochlorothiazide 25 mg PO DAILY 05/06/19 [History Last Taken 10/08/21] levothyroxine 100 mcg PO DAILY 05/06/19 [History Last Taken 10/08/21] levothyroxine 200 mcg PO DAILY 05/06/19 [History Last Taken 10/08/21] lisinopril 10 mg PO DAILY 05/06/19 [History Last Taken 10/08/21] ciprofloxacin HCl [Cipro] 500 mg PO BID #14 tab 10/09/21 [Rx Last Taken Unknown] oxycodone-acetaminophen 1 tab PO Q6H PRN 7 Days #14 tab 10/09/21 [Rx Last Taken Unknown] Allergy/AdvReac Type Severity Reaction Status Date / Time latex Allergy Hives Verified 10/09/21 08:33 Family History (Updated 10/09/21 @ 12:03 by Kristen Rodgers) Sister Diabetes Mother Diabetes Myocardial infarction Social History (Updated 10/09/21 @ 12:03 by Kristen Rodgers) household members: family housing: house Smoking Status: Never smoker substance use type: does not use ROS ROS ED Constitutional Constitutional ED: Denies chills, fever(s) or sweats Eyes Eyes: Denies change in vision ENT ENT ED: Denies dysphagia or sore throat Cardiovascular Cardiovascular: Denies chest pain, leg edema, palpitations or racing heartbeat Respiratory/Chest Respiratory/Chest: Denies cough, dyspnea or dyspnea on exertion Gastrointestinal Gastrointestinal: Reports abdominal pain, nausea and vomiting; Denies diarrhea Genitourinary Genitourinary ED: Reports dysuria; Denies hematuria or urinary frequency Musculoskeletal Musculoskeletal: Denies back pain, extremity pain or neck pain Integumentary Denies rash or wounds Neurologic Neurologic: Denies headache(s), paresthesias or weakness EXAM Physical Exam Const Vital Signs: 10/09/21 08:29 10/09/21 08:32 10/09/21 10:37 Temperature 98 F 98 F 98 F Temperature Source Temporal Temporal Temporal Pulse Rate 78 78 64 Respiratory Rate 26 H 26 H 18 Blood Pressure 149/115 H 149/115 H 142/85 H Blood Pressure Mean 126 126 104 Pulse Ox 99 99 95 Oxygen Delivery Method Room Air Room Air Room Air Positive well nourished and well developed Constitutional Narrative: Uncomfortable shaking unable to lie still. Nontoxic. General Appearance ED: well developed HEENT Reports moist mucous membranes normocephalic and atraumatic Eyes PERRL, EOMs intact bilaterally and conjunctivae normal General Eye ED: Yes normal appearance of both eyes Neck no lymphadenopathy and supple General: Negative for tenderness Chest Wall Chest: Negative for tenderness Resp normal respiratory effort and normal air movement Effort and Inspection: symmetric chest movement; Negative for respiratory distress Cardio regular rate, regular rhythm and no murmurs Peripheral Pulses: pulses 2+ throughout GI normal to inspection, nondistended, normoactive bowel sounds GI Narrative: Tender palpation right lower quadrant mild right upper quadrant. No guarding or rebound. Palpation: Negative for guarding or rebound tenderness present Back/Spine no CVA tenderness and no thoracic nor lumbar tenderness Extremity normal to inspection General Extremety ED: Negative for edema or tenderness General Extremity: Negative for edema Neuro oriented x3 and no sensory deficits noted Sensorium / Orientation: awake and alert Skin no rashes or lesions noted and no wounds MDM MDM MDM Narrative Medical decision making narrative: Renal stone protocol due to her discomfort. Labs White count 16.2 creatinine 1.55 lipase and liver enzymes are normal urine notes hematuria with no infection. She was given morphine x2 Zofran x2 with improving nausea however pain was still obtained on reevaluation. CT scan results did note a 6.2 mm right UVJ stone with hydroureter and nephrosis with stranding. Additional Dilaudid was given for symptom control. I spoke with on- call urologist Dr. Schaefer, will keep n.p.o. fluids are running will admit to his service for planned intervention. Lab Data Attestation: I reviewed the patient's lab results. Labs: Laboratory Results - last 24 hr 10/09/21 10/09/21 10/09/21 08:30 08:30 09:15 WBC 16.2 H RBC 4.55 Hgb 13.3 Hct 40.6 MCV 89.2 MCH 29.2 MCHC 32.8 RDW Std Deviation 50.8 H RDW Coeff of [place] 15.6 H Plt Count 330 MPV 11.6 Immature Gran % (Auto) 0.600 Neut % (Auto) 80.3 H Lymph % (Auto) 13.4 L [place] % (Auto) 5.3 Eos % (Auto) 0.1 Baso % (Auto) 0.3 Absolute Neuts (auto) 13.0 H Absolute Lymphs (auto) 2.17 Nucleated RBC % 0 Sodium 135 L Potassium 4.2 Chloride 105 Carbon Dioxide 20.0 L Anion Gap 10 BUN 30 H Creatinine 1.55 H Estim Creat Clear Calc 32.04 Est GFR (MDRD) Af Amer 45 L Est GFR (MDRD) Non-Af 37 L BUN/Creatinine Ratio 19.4 Glucose 190 H Calcium 10.1 Total Bilirubin 0.80 AST 33 ALT 61 H Alkaline Phosphatase 77 Total Protein 9.4 H Albumin 4.5 Globulin 4.9 H Albumin/Globulin Ratio 0.9 Lipase 137 Urine Color Yellow Urine Clarity Clear Urine pH 7.0 Ur Specific [place] 1.010 Urine Protein 30 H Urine Glucose (UA) Normal Urine Ketones 15 H Urine Occult Blood 10 H Urine Nitrite Negative Urine Bilirubin Negative Urine Urobilinogen Normal Ur Leukocyte Esterase Negative Urine RBC 0 SEEN Urine WBC 0 SEEN Ur Squamous Epith Cells 0 SEEN Urine Bacteria RARE Urine Mucus 0 SEEN Radiography Diagnostic Testing: Clinical Impression(s) from Imaging Studies Abdomen/Pelvis CT 10/09/21 08:41 IMPRESSION: 6.2 mm calculus at the right ureterovesical junction causing mild degree of right hydronephrosis and hydroureter with perinephric and periureteric stranding. Diffuse fatty infiltration of the liver. Electronically Signed: Jayme Valadez MD at 10:13 EDT , Discharge Plan Dx/Rx/DC Orders Clinical Impression: Renal colic on right side, Urolithiasis, Acute renal insufficiency, Hematuria Disposition Disposition: Acute Care [facility] Discharge Date/Time: 10/09/21 11:41
[2021-10-09] MEDS: Morphine 4 MG/ML Syringe IV ×2 (08:46→09:22)
[2021-10-09] MEDS: Ondansetron 4 MG/2 ML Vial IV ×2 (08:46→09:22)
[2021-10-09 08:47] LABS: Absolute Lymphocyte Count 2.17 X10^3/uL (0.83-4.51); Basophil# 0.05 X10^3/uL; Basophil% 0.3 % (0-1); Eosinophil# 0.02 X10^3/uL; Eosinophils% 0.1 % (0-5); Hematocrit 40.6 % (37-47); Hemoglobin 13.3 g/dL (12.0-15.0); Lymphocyte # 2.17 X10^3/ul (0.83-4.51); Lymphocyte % 13.4 % (19-41); Mean Corp Hgb Conc 32.8 g/dL (32-36); Mean Corpuscular Hgb 29.2 pg (27.0-32.0); Mean Corpuscular Volume 89.2 fL (81-99); Mean Platelet Vol. 11.6 fl (6.2-12.0); Monocyte# 0.85 X10^3/uL; Monocyte% 5.3 % (0-10); NRBC Flagged by Analyzer 0 % (0-5); Neutrophil # 12.97 X10^3/uL (2.7-7.7); Neutrophil % 80.3 % (47-70); Platelet Count 330 K/mm3 (150-450); RBC Distribution Width CV 15.6 % (11.6-14.6); RBC Distribution Width SD 50.8 fl (35.1-43.9); Red Blood Count 4.55 M/mm3 (4.2-5.4); White Blood Count 16.2 K/mm3 (4.4-11.0)
[2021-10-09] MEDS: 0.9% Normal Saline 1,000 ML 1000 ML IV (08:47)
[2021-10-09 09:00] LABS: ALB/GLOB Ratio 0.9 RATIO (0.9-2.4); AST(SGOT) 33 U/L (15-37); Alanine Aminotransfer ALT/SGPT 61 U/L (13-56); Albumin, Serum 4.5 g/dL (3.2-5.0); Alkaline Phosphatase 77 U/L (45-117); Anion Gap 10 (5-15); BUN 30 mg/dL (7-18); BUN/Creat Ratio 19.4 RATIO (10-20); Calcium,Total 10.1 mg/dL (8.5-10.1); Chloride 105 mmol/L (98-107); Creatinine, Serum 1.55 mg/dL (0.55-1.02); EST Glomerular Filtration Rate 37 mL/min (>60); Est Glom Filt Rate - Afr Amer 45 mL/min (>60); Estimated Creatinine Clearance 32.04 ml/min; Globulin 4.9 g/dL (2.2-4.2); Glucose 190 mg/dL (74-106); Lipase 137 U/L (73-393); Potassium 4.2 mmol/L (3.5-5.1); Protein, Total 9.4 g/dL (6.4-8.2); Sodium Level 135 mmol/L (136-145)
[2021-10-09 09:21] LABS: Mucous, Urine 0 SEEN /hpf (<or=2+); Red Blood Cells-Urine 0 SEEN /hpf (0-5); Squamous Epithelial Cells - UA 0 SEEN /hpf (5-10); White Blood Cells 0 SEEN /hpf (0-5)
[2021-10-09 09:26] LABS: Color, Urine Yellow (Yellow); Glucose, Dipstick Normal (Normal); Ketone-Dipstick 15 mg/dl (Negative); Leukocyte Esterase-Dipstick Negative /ul (Negative); Nitrite-Dipstick Negative (Negative); Occult Blood-Urine 10 /ul (Negative); Protein-Dipstick 30 mg/dl (Negative); Urine Bilirubin Dipstick Negative (Negative); Urine Clarity Clear (Clear); Urine Urobilinogen Normal (Normal)
[2021-10-09 09:38] LABS: Bacteria RARE /hpf (None Seen)
[2021-10-09] MEDS: HYDROmorphone 1 MG/ML Syringe IV (10:33)
--- NOTE | 2021-10-09 10:34 | NURSING ---
MED SURG OBS PRADEEP RIGHT RENAL COLIC, UROLITHIASIS, RENAL INSUFFICENCY
[2021-10-09] MEDS: 0.9% Normal Saline 1,000 ML 150 ML IV (10:43)
--- NOTE | 2021-10-09 10:47 | ED.RN ---
AFTER DILAUDID PT PULSE OX DROPS TO 87 [address]. O2 [address] HESS
[2021-10-09 11:59] LABS: International Normalized Ratio 1.2; Prothrombin Time (Protime)PT. 14.5 SECONDS (11.7-14.9)
[2021-10-09 12:00] LABS: Partial Thromboplast Time 40.9 Seconds (24.1-36.2)
--- NOTE | 2021-10-09 12:54 | HP.PCM_ITS ---
HPI - General General Date of Admission: 10/09/21 HPI Narrative SATISH SILVESTRE, is a 51 F who presents with a kidney stone severe intractable pain plan to place a stent today. Pain is on the right side. Plan to place a stent today [facility] Medical History (Updated 10/09/21 @ 12:03 by Kristen Rodgers) High cholesterol Hypertension Hypothyroidism Home Medications albuterol sulfate 2 puff INHALATION Q2H PRN PRN #1 inhaler 05/06/19 [Rx Last Taken Unknown] amlodipine 10 mg PO DAILY 05/06/19 [History Last Taken 10/08/21] atorvastatin 20 mg PO DAILY 05/06/19 [History Last Taken 10/08/21] hydrochlorothiazide 25 mg PO DAILY 05/06/19 [History Last Taken 10/08/21] levothyroxine 100 mcg PO DAILY 05/06/19 [History Last Taken 10/08/21] levothyroxine 200 mcg PO DAILY 05/06/19 [History Last Taken 10/08/21] lisinopril 10 mg PO DAILY 05/06/19 [History Last Taken 10/08/21] ciprofloxacin HCl [Cipro] 500 mg PO BID #14 tab 10/09/21 [Rx Last Taken Unknown] oxycodone-acetaminophen 1 tab PO Q6H PRN 7 Days #14 tab 10/09/21 [Rx Last Taken Unknown] Allergy/AdvReac Type Severity Reaction Status Date / Time latex Allergy Hives Verified 10/09/21 08:33 Family History (Updated 10/09/21 @ 12:03 by Kristen Rodgers) Sister Diabetes Mother Diabetes Myocardial infarction Social History (Updated 10/09/21 @ 12:03 by Kristen Rodgers) household members: family housing: house Smoking Status: Never smoker substance use type: does not use Vital Signs Vital Signs Vital Signs: 10/09/21 08:29 10/09/21 08:32 10/09/21 10:37 Temperature 98 F 98 F 98 F Temperature Source Temporal Temporal Temporal Pulse Rate 78 78 64 Respiratory Rate 26 H 26 H 18 Blood Pressure 149/115 H 149/115 H 142/85 H Blood Pressure Mean 126 126 104 Blood Pressure Source Blood Pressure Position Blood Pressure Location Pulse Ox 99 99 95 Oxygen Delivery Method Room Air Room Air Room Air 10/09/21 12:15 Temperature 97.6 F L Temperature Source Temporal Pulse Rate 68 Respiratory Rate 20 H Blood Pressure 149/89 H Blood Pressure Mean 109 Blood Pressure Source Monitor Blood Pressure Position Semi-Fowlers Blood Pressure Location Right Arm Pulse Ox 96 Oxygen Delivery Method Room Air Weight Weight: 98.4 kg Body Mass Index (BMI) 42.3 Results Lab / Micro Data Result Diagrams: 10/09/21 08:30 10/09/21 08:30 Labs: Laboratory Results - last 24 hr 10/09/21 08:30: WBC 16.2 H, RBC 4.55, Hgb 13.3, Hct 40.6, MCV 89.2, MCH 29.2, MCHC 32.8, RDW Std Deviation 50.8 H, RDW Coeff of [place]ham 15.6 H, Plt Count 330, MPV 11.6, Immature Gran % (Auto) 0.600, Neut % (Auto) 80.3 H, Lymph % (Auto) 13.4 L, [place] % (Auto) 5.3, Eos % (Auto) 0.1, Baso % (Auto) 0.3, Absolute Neuts (auto) 13.0 H, Absolute Lymphs (auto) 2.17, Nucleated RBC % 0 10/09/21 08:30: Sodium 135 L, Potassium 4.2, Chloride 105, Carbon Dioxide 20.0 L , Anion Gap 10, BUN 30 H, Creatinine 1.55 H, Estim Creat Clear Calc 32.04, Est GFR (MDRD) Af Amer 45 L, Est GFR (MDRD) Non-Af 37 L, BUN/Creatinine Ratio 19.4, Glucose 190 H, Calcium 10.1, Total Bilirubin 0.80, AST 33, ALT 61 H, Alkaline Ph osphatase 77, Total Protein 9.4 H, Albumin 4.5, Globulin 4.9 H, Albumin/Globulin Ratio 0.9, Lipase 137 10/09/21 09:15: Urine Color Yellow, Urine Clarity Clear, Urine pH 7.0, Ur Specific [place] 1.010, Urine Protein 30 H, Urine Glucose (UA) Normal, Urine Ketones 15 H, Urine Occult Blood 10 H, Urine Nitrite Negative, Urine Bilirubin Negative, Urine Urobilinogen Normal, Ur Leukocyte Esterase Negative, Urine RBC 0 SEEN, Urine WBC 0 SEEN, Ur Squamous Epith Cells 0 SEEN, Urine Bacteria RARE, Urine Mucus 0 SEEN 10/09/21 11:34: PT 14.5, INR 1.2, APTT 40.9 H Radiology Impression Abdomen/Pelvis CT 10/09/21 08:41 IMPRESSION: 6.2 mm calculus at the right ureterovesical junction causing mild degree of right hydronephrosis and hydroureter with perinephric and periureteric stranding. Diffuse fatty infiltration of the liver. Electronically Signed: Jayme Valadez MD at 10:13 EDT ,
--- NOTE | 2021-10-09 12:55 | PCM.DC ---
Discharge Instructions Diet Discharge Diet: No restrictions Activity Discharge Activity: Return to Normal Activity and May Not Drive (while taking narcotic pain medications.) Dressing / Incision Call your doctor if you observe: Fever of 101 or Higher Follow Up Care Please Follow Up With: Abhinav Schaefer MD When: Call [phone] for an appointment Test Results: Test results from this visit will be discussed in further detail at your follow-up appointment, if applicable. Discharge Plan Admission Admit Date/Time: 10/09/21 11:14 Primary Reason for Your Visit: kidney stone Attending Provider: Abhinav Schaefer Primary Care Provider: Kash Gentile Discharge Orders/Prescriptions Prescriptions: New oxycodone-acetaminophen 5-325 mg tablet 1 tab PO Q6H PRN (Reason: pain) 7 Days Qty: 14 RF: 0 ciprofloxacin HCl [Cipro] 500 mg tablet 500 mg PO BID Qty: 14 RF: 0 Continued atorvastatin 20 MG tablet 20 mg PO DAILY RF: 0 levothyroxine 75 MCG tablet 100 mcg PO DAILY RF: 0 amlodipine 10 MG tablet 10 mg PO DAILY RF: 0 lisinopril 10 MG tablet 10 mg PO DAILY RF: 0 levothyroxine 200 MCG tablet 200 mcg PO DAILY RF: 0 hydrochlorothiazide 25 MG tablet 25 mg PO DAILY RF: 0 albuterol sulfate 1 INHALER inhaler 2 puff inhalation Q2H PRN PRN (Reason: Wheezing) Qty: 1 RF: 0 Referrals / Follow Up: Abhinav Schaefer MD [STAFF PHYSICIAN] - Kash Gentile MD [Primary Care Provider] -
[2021-10-09] MEDS: 0.9% Normal Saline 1,000 ML 75 ML IV (13:00)
[2021-10-09] MEDS: Cefazolin 1 GM/50 ML BAG IV (14:51)
--- NOTE | 2021-10-09 15:13 | OP.PCM_ITS ---
Report of Operation Date of Procedure: 10/09/21 Pre-Operative Diagnosis: right ureteral calculi Post-Operative Diagnosis: same small bladder tumor Surgery/Procedure Performed:: cysto bladder biopsy and fulguration tumor, right stent placement Description of Surgical Findings:: Patient was taken back to the operating room after induction of general anesthesia, the patient was placed in dorsolithotomy position. The urethra and genitals were prepped and draped in usual sterile fashion. Using a 21 Tu[place] rigid cystourethroscope the entire length of the urethra was normal then went into the bladder. Identified the trigone the left and right ureteral orifice. I then cannulated the right orifice and advanced a wire up into the kidney. I then backloaded a 5 [place] open ended catheter over the wire and injected contrast to delineate the anatomy. After the retrograde was performed I then used fluoroscopic images and guidance to advanced a wire up into the kidney and over the 0.038 glidewire I advanced a 6 Tu[place] by 26 cm latasha ble pigtail stent. I then pulled the 0.038 Glidewire off and the stent coiled in the kidney bladder good position. The bladder was then drained. We confirmed the position of the stent by fluoroscopy. I went into the bladder with a 30 degree lens and a cystoscope was performed and identified the tumor the tumors which was about 1 centimeters in size and occupying right trigone of the bladder. I then switched over to the 70 degree lens and inspected the rest of the bladder with a 70 degree lens to make sure there is no other tumors in the bladder and to identify all the tumor locations. The right and left ureteral orifice were identified and stent was in the right ureter. The tumor was involved not involved with the ureteral orifice. I then placed the Olympus bipolar resectoscope with a large loop into the bladder. I then started resected the tumor and started superficially shaving small little pieces working my way to the base of the tumor. As I went along I then cauterize any bleeders that were encountered during the resection. The tumor pieces were then flushed out of the bladder and continued resecting the tumor until finally I got down to the base of the tumor. The entire tumor was resected and sent as a specimen. The Ellik was used then to evacuate all the tumor pieces out of the bladder. I then cauterized extensively the tumor base and also circumferentially around where the tumor was. Again we made sure to evacuate all the pieces out the bladder. I made sure there was no more bleeding from the base of the bladder and then over the tumor pieces were then evacuated out and sent off as a specimen. The patient was taken back to the PACU in stable condition. Patient anesthetic was reversed and was taken back to the PACU in good condition. Surgeon: chelsea Type of Anesthesia: General Drains: stent right Admit VTE Documentation VTE Present on Admission: No VTE Mechan Device Prophylaxis: SCD's VTE Pharm Prophylaxis ordered?: No
--- NOTE | 2021-10-09 18:06 | NURSING ---
This RN into room to advise pt that Dr Schaefer has placed discharge orders for pt. Asked pt if her mother or her sister could come and pick her up. Pt states that her mother and sister do not drive and she does not have any one else that she knows that can come to get her. [place] attempted cab services to see if they can transport pt, no cabs available to take her to [place]. Call placed to mother to see if she had any resources for her to get a ride. Pts mother states that [facility] has an agreement with them and that all pt she needs to do is call the department and they will pick her up. Call placed to [facility] to Darin who states that is not the case and they are not able to do so. Pt advised that she will be staying the night tonight. Dr Schaefer updated and fine with pt staying overnight.
[2021-10-10] MEDS: 0.9% Normal Saline 1,000 ML 75 ML IV (02:25)
[2021-10-10 03:36] VITALS: BP 104/83; PULSE 58; RESP 18; TEMP 36.9; O2SAT 98
--- NOTE | 2021-10-10 07:15 | PCM.PN.BLA ---
Progress Note stayed the night as no ride to go home yesturday doing well home this am, office will call for instructions.
--- NOTE | 2021-10-10 08:33 | NURSING ---
Review charting with Jt Chaudhari RN
== END 2021-10-10 07:14 | disposition home or self-care (01) ==
LOC: ED 10:36 → PCU 11:16
PROVIDERS: Admitting Provider Urology; Emergency Provider Emergency Medicine; PCP Family Medicine; Visit Provider Urology
PROC: (CPT 52234; principal; 2021-10-09 16:25)
DX: D41.4 Neoplasm of uncertain behavior of bladder (principal); N13.2 Hydronephrosis with renal and ureteral calculous obstruction; I10 Essential (primary) hypertension; N28.9 Disorder of kidney and ureter, unspecified; E78.00 Pure hypercholesterolemia, unspecified; E03.9 Hypothyroidism, unspecified; Z79.890 Hormone replacement therapy; Z79.899 Other long term (current) drug therapy
CPT/HCPCS: 52234; 00912; 52332; 74176; 76000; 80053; 81001; 83690; 85025; 85610; 85730; 86850; 86900; 86901; 87086; 87088; 88305; 96361; 96374; 96375; 96376; 99218; 99285; J7030; A4216; C1769; C2617; G0378; J2405

== ENCOUNTER 2021-10-18 12:37 | Observation (INO) | payer OTHER, SELFPAY ==
[2021-10-18] VITALS (10 sets, daily range): BP systolic 106–133; BP diastolic 70–80; PULSE 46–65; RESP 16–18; TEMP 36.2–37; O2SAT 92–97; BMI 41.9
[2021-10-18 09:39] LABS: Internal QC Validated? YES +Cl - CLEAR BKGD; Pregnancy, Urine Negative Negative
[2021-10-18] MEDS: Lactated Ringers 1,000 ML 15 ML IV (09:41)
--- NOTE | 2021-10-18 11:22 | PCM.HP.STD ---
HPI - General HPI Narrative SATISH SILVESTRE, is a 51 F who presents for laser lithotripsy of stone and stent removal PFSH Medical History (Updated 10/17/21 @ 12:39 by Philly Cole) Anemia Gastric reflux High cholesterol History of irregular heartbeat History of pain when walking Hx of chronic bronchitis Hypertension Hypothyroidism Non-smoker Shortness of breath on exertion Wears glasses Home Medications albuterol sulfate 2 puff INHALATION Q2H PRN PRN #1 inhaler 05/06/19 [Rx Last Taken Unknown] amlodipine 10 mg PO DAILY 05/06/19 [History Last Taken 10/08/21] atorvastatin 20 mg PO DAILY 05/06/19 [History Last Taken 10/08/21] hydrochlorothiazide 25 mg PO DAILY 05/06/19 [History Last Taken 10/08/21] levothyroxine 100 mcg PO DAILY 05/06/19 [History Last Taken 10/08/21] levothyroxine 200 mcg PO DAILY 05/06/19 [History Last Taken 10/08/21] lisinopril 10 mg PO DAILY 05/06/19 [History Last Taken 10/08/21] ciprofloxacin HCl [Cipro] 500 mg PO BID #14 tab 10/09/21 [Rx Last Taken Unknown] oxycodone-acetaminophen 1 tab PO Q6H PRN 7 Days #14 tab 10/09/21 [Rx Last Taken Unknown] ciprofloxacin HCl [Cipro] 500 mg PO BID #10 tab 10/18/21 [Rx Last Taken Unknown] Allergy/AdvReac Type Severity Reaction Status Date / Time latex Allergy Hives Verified 10/18/21 09:36 Family History (Updated 10/09/21 @ 12:03 by Kristen Rodgers) Sister Diabetes Mother Diabetes Myocardial infarction Surgical History (Updated 10/17/21 @ 12:39 by Philly Cole) Hx of cystoscopy Social History (Updated 10/09/21 @ 12:03 by Kristen Rodgers) household members: family housing: house Smoking Status: Never smoker substance use type: does not use Vital Signs Vital Signs Vital Signs: 10/18/21 09:36 Temperature 97.1 F L Temperature Source Temporal Pulse Rate 59 L Respiratory Rate 16 Respiratory Pattern Normal Blood Pressure 119/75 Blood Pressure Mean 89 Blood Pressure Source Monitor Blood Pressure Position Semi-Fowlers Blood Pressure Location Left Arm Pulse Ox 95 Oxygen Delivery Method Room Air Weight Weight: 97.432 kg Body Mass Index (BMI) 41.9 Results Lab / Micro Data Labs: Laboratory Results - last 24 hr 10/18/21 09:30: Urine Test Negative
--- NOTE | 2021-10-18 11:22 | PCM.DC ---
Discharge Instructions Diet Discharge Diet: No restrictions Activity Discharge Activity: Return to Normal Activity and May Not Drive (while taking narcotic pain medications.) Dressing / Incision Call your doctor if you observe: Fever of 101 or Higher Follow Up Care Please Follow Up With: Abhinav Schaefer MD When: Call [phone] for an appointment Test Results: Test results from this visit will be discussed in further detail at your follow-up appointment, if applicable. Discharge Plan Admission Primary Reason for Your Visit: laser stone Attending Provider: Abhinav Schaefer Primary Care Provider: Kash Gentile Discharge Orders/Prescriptions Prescriptions: New ciprofloxacin HCl [Cipro] 500 mg tablet 500 mg PO BID Qty: 10 RF: 0 Continued atorvastatin 20 MG tablet 20 mg PO DAILY RF: 0 levothyroxine 75 MCG tablet 100 mcg PO DAILY RF: 0 amlodipine 10 MG tablet 10 mg PO DAILY RF: 0 lisinopril 10 MG tablet 10 mg PO DAILY RF: 0 levothyroxine 200 MCG tablet 200 mcg PO DAILY RF: 0 hydrochlorothiazide 25 MG tablet 25 mg PO DAILY RF: 0 albuterol sulfate 1 INHALER inhaler 2 puff inhalation Q2H PRN PRN (Reason: Wheezing) Qty: 1 RF: 0 oxycodone-acetaminophen 5-325 mg tablet 1 tab PO Q6H PRN (Reason: pain) 7 Days Qty: 14 RF: 0 ciprofloxacin HCl [Cipro] 500 mg tablet 500 mg PO BID Qty: 14 RF: 0 Referrals / Follow Up: Abhinav Schaefer MD [STAFF PHYSICIAN] - Kash Gentile MD [Primary Care Provider] - Disposition Disposition (needs filled in before D/C Order can be placed): Home, Self Care
[2021-10-18] MEDS: Cefazolin 2 GM in 0.9% Normal Saline 100 ML IV (11:26)
--- NOTE | 2021-10-18 11:44 | OP.PCM_ITS ---
Report of Operation Date of Procedure: 10/18/21 Pre-Operative Diagnosis: Distal right ureteral calculi status post stent Post-Operative Diagnosis: Same Surgery/Procedure Performed:: Right ureteroscopy laser lithotripsy of stone and removal of stent Description of Surgical Findings:: This is a patient who presents to the hospital for treatment for an obstructing distal ureter calculi. I discussed with the patient how the surgery would be performed and we reviewed the risks and benefits of the surgery. The risk and benefits include the risk of failure to remove the stone completely and that the patient may need multiple procedure s. We discussed the risk of an infection, the risk of bleeding. We discussed the very rare risk of serious complicated injury to the ureter. The patient understands that if the stone is not able to be removed safely that we may abort the procedure and place a stent. After full discussion and all questions address with the patient the consent form was signed the side was marked appropriately and the patient was taken back to the operating room for the procedure. The patient was taken back to the operating room. After induction of anesthesia by the anesthesiology team the patient was placed in dorsolithotomy position. The genitals were prepped and draped in usual sterile fashion. I went into the bladder with a 21 Amharic rigid cystourethroscope through the urethra. Upon entering the bladder I inspected the trigone the left and right ureteral orifice and the bladder itself. I then cannulated the Right ureteral orifice and advanced a 0.038 Glidewire up into the kidney. Then over the Glidewire I advanced a 5 Fr Ureteral catheter and performed a retrograde pyelogram with about 10cc of contrast, to delineate the anatomy and identify the stone location. Then a ureteral balloon dilator was advanced over the wire and the distal ureter was balloon dilated with a 12 Fr x 5cm balloon dilator. After 3 minutes of dilating the ureter the balloon was backloaded off the 0.038 glidewire then the safety wire was left in place. I then placed a second 0.038 Guidewire as a working wire and over the working 0.038 guidewire I went in with the katherine rigide 7.5fr ureteroscope. I was able to go inside with the 7.5Fr katherine rigid utereroscope and I pulled out the working guidewire and then through the 7.5 fr simirigid ureteroscope I engage the stone in the distal ureter with laser lithotripsy using a 270miron laser fiber with energy setting of 6 Hertz and 0.6 J until the stone was lasered into tiny little pieces that should pass on their own. I then backed out of the ureter left the wire in place and then removed the 0.038 guidewire. No stent was placed and old stent was removed. I then drained the patient's bladder and the cystoscope was removed and the patient was taken back to the recovery room in good position. The patient was given discharge instructions to call the office for instructions on when to come to the office to have the stent removed. Surgeon: chelsea Type of Anesthesia: General Drains: none Admit VTE Documentation VTE Present on Admission: No VTE Mechan Device Prophylaxis: SCD's VTE Pharm Prophylaxis ordered?: No
--- NOTE | 2021-10-18 14:55 | CASEMGMT ---
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 Original Note: DEJA NGUYEN noted on order that pt has no transportation home. DEJA NGUYEN in to pt room. Pt states she stated prior to surgery that she had no transportation home and she could only have the surgery if there is transportation provided. Pt came to surgery with [facility]. TC to [facility], no openings for today and they do not transport on Saturdays. Pt states she has no castro, no credit card, no family, no friends or nondenominational members who can transport her. She states she does not get paid until next week. She has no one to borrow money from. Spoke with Arminda who ok'd taxi voucher. Charge nurse and pt aware.
== END 2021-10-18 18:16 | disposition home or self-care (01) ==
LOC: SDC 14:24 → MS3 14:29
PROVIDERS: Anesthesiology; Admitting Provider Urology; PCP Family Medicine; Referring Provider Urology; Visit Provider Urology
PROC: 0TJ98ZZ Inspection of Ureter, Via Natural or Artificial Opening Endoscopic (ICD-10-PCS; CPT 52352; principal; 2021-10-18 10:30)
DX: N20.1 Calculus of ureter (principal); I10 Essential (primary) hypertension; E78.00 Pure hypercholesterolemia, unspecified; K21.9 Gastro-esophageal reflux disease without esophagitis; E03.9 Hypothyroidism, unspecified; Z79.899 Other long term (current) drug therapy; Z79.890 Hormone replacement therapy; Z86.79 Personal history of other diseases of the circulatory system
CPT/HCPCS: 52353; 00918; 52310; 81025; 99406; J7120; C1769; J2405